=== PATIENT | male | born 1945 | race Caucasian/White ===

== ENCOUNTER 2022-05-22 07:53 | Outpatient (CLI) | payer MEDICARE, SELFPAY | END 2022-05-22 07:54 | disposition home or self-care (01) | PROVIDERS: PCP Family Medicine; Visit Provider Nurse Practitioner Family | DX: I87.312 Chronic venous hypertension (idiopathic) with ulcer of left lower extremity (principal); L97.829 Non-pressure chronic ulcer of other part of left lower leg with unspecified severity; I89.0 Lymphedema, not elsewhere classified; E66.9 Obesity, unspecified; Z68.30 Body mass index [BMI] 30.0-30.9, adult; Z72.0 Tobacco use | CPT/HCPCS: 99213 ==

== ENCOUNTER 2022-06-07 08:06 | Outpatient (CLI) | payer MEDICARE, SELFPAY | END 2022-06-07 08:07 | disposition home or self-care (01) | LOC: WOUND 08:07 | PROVIDERS: PCP Family Medicine; Visit Provider Nurse Practitioner Family | DX: I87.313 Chronic venous hypertension (idiopathic) with ulcer of bilateral lower extremity (principal); L97.822 Non-pressure chronic ulcer of other part of left lower leg with fat layer exposed; L97.812 Non-pressure chronic ulcer of other part of right lower leg with fat layer exposed; Q82.0 Hereditary lymphedema | CPT/HCPCS: 11042; 11045 ==

== ENCOUNTER 2022-06-13 07:51 | Outpatient (CLI) | payer MEDICARE, SELFPAY | END 2022-06-13 07:52 | disposition home or self-care (01) | LOC: WOUND 07:51 | PROVIDERS: PCP Family Medicine; Visit Provider Surgery | DX: I87.312 Chronic venous hypertension (idiopathic) with ulcer of left lower extremity (principal); L97.821 Non-pressure chronic ulcer of other part of left lower leg limited to breakdown of skin; I89.0 Lymphedema, not elsewhere classified | CPT/HCPCS: 97597 ==

== ENCOUNTER 2022-06-19 08:39 | Outpatient (CLI) | payer MEDICARE, SELFPAY | END 2022-06-19 08:40 | disposition home or self-care (01) | LOC: WOUND 08:40 | PROVIDERS: PCP Family Medicine; Visit Provider Nurse Practitioner Family | DX: I87.312 Chronic venous hypertension (idiopathic) with ulcer of left lower extremity (principal); L97.822 Non-pressure chronic ulcer of other part of left lower leg with fat layer exposed; I89.0 Lymphedema, not elsewhere classified | CPT/HCPCS: 11042 ==

== ENCOUNTER 2022-06-26 08:51 | Outpatient (CLI) | payer MEDICARE, SELFPAY | END 2022-06-26 08:52 | disposition home or self-care (01) | LOC: WOUND 09-05 10:37 | PROVIDERS: PCP Family Medicine; Visit Provider Nurse Practitioner Family | DX: I87.312 Chronic venous hypertension (idiopathic) with ulcer of left lower extremity (principal); L97.822 Non-pressure chronic ulcer of other part of left lower leg with fat layer exposed; I87.311 Chronic venous hypertension (idiopathic) with ulcer of right lower extremity; L97.819 Non-pressure chronic ulcer of other part of right lower leg with unspecified severity; Q82.0 Hereditary lymphedema; I83.022 Varicose veins of left lower extremity with ulcer of calf; L97.229 Non-pressure chronic ulcer of left calf with unspecified severity | CPT/HCPCS: 11042; 97597; 97598 ==

== ENCOUNTER 2022-07-04 07:53 | Outpatient (CLI) | payer MEDICARE, SELFPAY | END 2022-07-04 07:54 | disposition home or self-care (01) | LOC: WOUND 07:53 | PROVIDERS: PCP Family Medicine; Visit Provider Surgery | DX: I87.312 Chronic venous hypertension (idiopathic) with ulcer of left lower extremity (principal); L97.822 Non-pressure chronic ulcer of other part of left lower leg with fat layer exposed | CPT/HCPCS: 97597 ==

== ENCOUNTER 2022-07-05 08:41 | Outpatient (CLI) | payer MEDICARE, SELFPAY ==
--- NOTE | 2022-07-05 09:15 | CRLHL7_ITS ---
For Patients: As a result of the Century Cures Act, medical imaging exams and procedure reports are released immediately into your electronic medical record. You may view this report before your referring provider. If you have questions, please contact your health care provider. INDICATION: Localized edema COMPARISON: None. TECHNIQUE: A compression venous ultrasound exam was performed of the right lower extremity using bradford-scale imaging, color Doppler and spectral Doppler analysis. FINDINGS: Sonographic imaging of the right lower extremity demonstrates normal compressibility and color Doppler venous blood flow within the common femoral vein, deep femoral vein, and the proximal greater saphenous vein. Within the thigh, the femoral vein is patent and compressible. At a lower level, the popliteal and posterior tibial veins also show normal compressibility and color Doppler venous blood flow. Limited imaging of the contralateral groin demonstrates a normal spectral waveform and color Doppler venous blood flow within the left common femoral vein. IMPRESSION: Normal venous ultrasound exam. No evidence of deep vein thrombosis within the right lower extremity. Dictated by Marciano Dyer MD @ 07/05/2022 9:37:51 AM (Electronically Signed)
== END 2022-07-05 08:42 | disposition home or self-care (01) ==
PROVIDERS: PCP Family Medicine; Visit Provider Nurse Practitioner Family
DX: R60.0 Localized edema (principal)
CPT/HCPCS: 29581; 93971

== ENCOUNTER 2022-07-10 08:48 | Outpatient (CLI) | payer MEDICARE, SELFPAY | END 2022-07-10 08:49 | disposition home or self-care (01) | LOC: WOUND 08:48 | PROVIDERS: PCP Family Medicine; Visit Provider Nurse Practitioner Family | DX: I83.012 Varicose veins of right lower extremity with ulcer of calf (principal); I83.022 Varicose veins of left lower extremity with ulcer of calf; L97.218 Non-pressure chronic ulcer of right calf with other specified severity; L97.228 Non-pressure chronic ulcer of left calf with other specified severity; Q82.0 Hereditary lymphedema | CPT/HCPCS: 99214 ==

== ENCOUNTER 2022-07-10 09:40 | Outpatient (CLI) | payer MEDICARE, SELFPAY | END 2022-07-10 09:41 | disposition home or self-care (01) | LOC: LAB 10:06 | PROVIDERS: PCP Family Medicine; Visit Provider Nurse Practitioner Family | DX: I83.009 Varicose veins of unspecified lower extremity with ulcer of unspecified site (principal); I83.019 Varicose veins of right lower extremity with ulcer of unspecified site; L97.909 Non-pressure chronic ulcer of unspecified part of unspecified lower leg with unspecified severity; L97.919 Non-pressure chronic ulcer of unspecified part of right lower leg with unspecified severity | CPT/HCPCS: 87070; 87186 ==

== ENCOUNTER 2022-07-17 08:55 | Outpatient (CLI) | payer MEDICARE, SELFPAY | END 2022-07-17 08:56 | disposition home or self-care (01) | LOC: WOUND 08:56 | PROVIDERS: PCP Family Medicine; Visit Provider Nurse Practitioner Family | DX: I89.0 Lymphedema, not elsewhere classified (principal); I87.312 Chronic venous hypertension (idiopathic) with ulcer of left lower extremity; L97.828 Non-pressure chronic ulcer of other part of left lower leg with other specified severity | CPT/HCPCS: 99213 ==

== ENCOUNTER 2022-08-07 08:44 | Outpatient (CLI) | payer MEDICARE, SELFPAY ==
[2022-08-07 16:15] LABS: Albumin* 4.2 g/dL (3.3-5.0); Chloride* 99 mmol/L (96-114)
[2022-08-07 16:16] LABS: Potassium* 4.7 mmol/L (3.6-5.1)
[2022-08-07 16:18] LABS: Alkaline Phosphatase* 96 U/L (40-150); Aspartate Amino Transferase* 21 U/L (12-35); Bilirubin Total* 0.7 mg/dL (0.1-1.5); Blood Urea Nitrogen* 34 mg/dL (7-30); Carbon Dioxide* 32 mmol/L (20-32); Cholesterol* 207 mg/dL (90-199); Creatinine* 1.1 mg/dL (0.5-1.5); Estimated Glomerular Filt Rate 69 ml/min; Glucose* 115 mg/dL (60-115); Total Protein* 7.2 g/dL (6.0-8.3); Triglycerides* 105 mg/dL (40-149)
[2022-08-07 16:19] LABS: Alanine Aminotransferase* 18 U/L (4-50); Calcium* 9.2 mg/dL (8.4-10.6); HDL Cholesterol* 43 mg/dL (>=40); LDL Cholesterol Calculated 143 mg/dL (<100)
[2022-08-07 16:45] LABS: PSA Screen* 3.17 ng/mL (0.10-4.00)
[2022-08-07 16:59] LABS: Sodium* 138 mmol/L (135-149)
== END 2022-08-07 08:45 | disposition home or self-care (01) ==
PROVIDERS: PCP Family Medicine; Visit Provider Family Medicine
DX: Z00.00 Encounter for general adult medical examination without abnormal findings (principal); R60.0 Localized edema; E78.00 Pure hypercholesterolemia, unspecified; L30.9 Dermatitis, unspecified
CPT/HCPCS: 80053; 80061; 84153

== ENCOUNTER 2022-08-23 13:58 | Outpatient (CLI) | payer MEDICARE, SELFPAY ==
[2022-08-23 13:35] LABS: Chloride* 95 mmol/L (96-114); Potassium* 4.8 mmol/L (3.6-5.1); Sodium* 137 mmol/L (135-149)
[2022-08-23 13:38] LABS: Blood Urea Nitrogen* 39 mg/dL (7-30); Calcium* 9.8 mg/dL (8.4-10.6); Carbon Dioxide* 36 mmol/L (20-32); Creatinine* 1.2 mg/dL (0.5-1.5); Estimated Glomerular Filt Rate 62 ml/min; Glucose* 153 mg/dL (60-115)
== END 2022-08-23 13:59 | disposition home or self-care (01) ==
PROVIDERS: PCP Family Medicine; Visit Provider Family Medicine
DX: R60.0 Localized edema (principal)
CPT/HCPCS: 80048

== ENCOUNTER 2023-10-15 07:53 | Outpatient (CLI) | payer MEDICARE, SELFPAY | END 2023-10-15 07:54 | disposition home or self-care (01) | LOC: WOUND 07:54 | PROVIDERS: PCP Family Medicine; Visit Provider Nurse Practitioner Family | DX: I87.313 Chronic venous hypertension (idiopathic) with ulcer of bilateral lower extremity (principal); I87.2 Venous insufficiency (chronic) (peripheral); L97.818 Non-pressure chronic ulcer of other part of right lower leg with other specified severity; L97.828 Non-pressure chronic ulcer of other part of left lower leg with other specified severity; L97.328 Non-pressure chronic ulcer of left ankle with other specified severity | CPT/HCPCS: 97602; 99213 ==

== ENCOUNTER 2023-10-31 10:59 | Outpatient (CLI) | payer MEDICARE, SELFPAY | END 2023-10-31 11:00 | disposition home or self-care (01) | LOC: WOUND 10:59 | PROVIDERS: PCP Family Medicine; Visit Provider Nurse Practitioner Family | DX: I87.313 Chronic venous hypertension (idiopathic) with ulcer of bilateral lower extremity (principal); I87.2 Venous insufficiency (chronic) (peripheral); L97.828 Non-pressure chronic ulcer of other part of left lower leg with other specified severity; L97.818 Non-pressure chronic ulcer of other part of right lower leg with other specified severity | CPT/HCPCS: 97602; 99214 ==

== ENCOUNTER 2024-05-05 10:23 | Outpatient (CLI) | payer MEDICARE, SELFPAY ==
--- OUTSIDE RECORDS SUMMARY | 2024-05-05 10:29 | XMS_ITS | Clinical Summary ---
[facility] Organization [facility] Address [address] [place] [address] Care Team Providers Care Meter Record Clerk Name Role Phone Found, No Pcp MD Primary Care Provider Unavailab le Source Comments You are receiving this document as you are listed as the primary care provider,follow-up provider, or the patient has been referred to you for consultation.This is in compliance with the Medicare andMedicaid EHR Incentive Program,which states Providers who transition their patient to another setting of careor provider of care or refers their patient to another provider of care shouldprovide summary care record for each transition of care or referral. [facility] Allergies No known active allergies Medications Medication Sig Dispensed Refills Start Date End Date Status vitamin E ( VITAMIN E) 100 UNITS capsule Take 2 capsules by mouth daily (every 24 hours). Patient unsure of dosage. 09/16/2012 Active traMADol (ULTRAM) 50 MG tabletIndications:Todd k pain, unspecified back location, unspecified back pain laterality, unspecified chronicity Take 1 Tablet by mouth every 6 hours as needed for Pain. 20 Tablet 06/21/2019 Active Active Problems Problem Noted Date Diagnosed Date Febrile neutropenia 08/28/2012 Hyponatremia 08/28/2012 Hodgkin's disease 08/05/2012 Cancer Staging:Clinical:Stage III- Unsigned Pathologic: Unsigned Essential hypertension 08/27/2008 Overview: Hypertension Tobacco use disorder 08/27/2008 Overview: LW Modifier: 1/2-1 ppd LW Onset: 1972 ; Tobacco Abuse Immunizations Name Administration Dates Next Due Flu Vac Preserv Free (3+yrs) 09/02/2012 Influenza IIV3 (Trivalent) Edmar Medranose, 65+ Yrs (38293) 08/29/2017,08/24/2016 TDAP (ADACEL) 03/11/2008 Family History Medical History Relation Name Comments Diabetes Father Heart Disease Mother Relation Name Status Comments Father Mother Brother 1 Alive Brother 2 Alive Sister Alive Social History Tobacco Use Types Packs/Day Years Used Date Smoking Tobacco: Some Days Cigarettes 0.5 45 Smokeless Tobacco: Never Comments:Smoked 1 ppd x 45 y ears - quit 2 weeks ago Alcohol Use Standard Drinks/Week Comments No 0 (1 standard drink = 0.6 oz pure alcohol) patient reports 1-2 drinks a day. Sex and Gender Information Value Date Recorded Sex Assigned at Not on file Gender Identity Not on file Sexual Orientation Not on file Last Filed Vital Signs Vital Sign Reading Time Taken Comments Blood Pressure 148/94 06/21/2019 1:04 PM CDT Pulse 90 06/21/2019 1:04 PM CDT Temperature 36.8 ??C (98.2 ??F) 06/21/2019 12:59 PM C DT Respiratory Rate 17 06/21/2019 12:59 PM CDT Oxygen Saturation 96% 06/21/2019 12:59 PM CDT Inhaled Oxygen Concentration - - Weight 122.9 kg (271 lb) 06/21/2019 12:59 PM CDT Height 181.6 cm (5' 11.5) 07/08/2013 12:15 PM C DT Body Mass Index 37.27 07/08/2013 12:15 PM CDT Plan of Treatment Health Maintenance Due Date Last Done Comments Hep C Screening (Preventive Services) 1945 Zoster/Shingles (1 of 2) 1995 Pneumococcal 65+ Yrs (2 - PPSV23 or PCV20) 06/21/2017 06/21/2016 DTaP/Tdap/Td (2 - Tdap) 03/11/2018 03/11/2008 COVID-19 Vaccine (3 - season) 2023 02/18/2021, 01/21/2021 Medicare Annual Wellness Visit 11/25/2023 Influenza (Season Ended) 2024 017, 08/24/2016, 09/06/2015, Additional history exists Cholesterol Discontinued 07/15/2013, 08/14/2012 HepA Aged Out No longer eligi ble based on patient's age to complete this topic HepB Aged Out No longer eligi ble based on patient's age to complete this topic Hib Aged Out No longer eligi ble based on patient's age to complete this topic IPV (Polio) Aged Out No longer eligi ble based on patient's age to complete this topic MCV4 Aged Out No longer eligi ble based on patient's age to complete this topic Procedures Procedure Name Priority Date/Time Associated Diagnosis Comments LIPID PANEL & DIRECT LDL (IF NEEDED) Routine 07/15/2013 9:32 AM CDT Screening cholesterol level from Last 3 Months or Most Recently Relevant to Health Maintenance Results * (ABNORMAL) Lipid Panel and Direct LDL(If Needed) (07/15/2013 9:32 AM CDT) Cholesterol 203(H) 0 - 200 mg/dL HP CONVERSION Triglycerides 71 0 - 149 mg/dL HP CONVERSION HDL Cholesterol 46 >39 mg/dL HP CONVERSION Cholesterol/HDL Ratio Screen 4.4 HP CONVERSION LDL Calculated 143(H) 19 - 130 mg/dL HP CONVERSION Hours Fasting 14.0 HP CONVERSION 07/15/2013 9:32 AM CDT 07/15/2013 9:32 AM CDT Narrative HP CONVERSION - 07/15/2013 11:12 AM CDT Performed at [facility], [address] [place] [address] Calos Fu MD LAB_1 HP CONVERSION from Last 3 Months or Most Recently Relevant to Health Maintenance Care Teams Meter Record Clerk Relationship Specialty Start Date End Date Found, No Pcp, [address] [place] [address] PCP - General 02/09/22
--- OUTSIDE RECORDS SUMMARY | 2024-05-05 10:29 | XMS_ITS | Referral Summary ---
Author Organization [employer] [facility] Address [address] [place] [address] Care Team Providers Care Post Tensioning Ironworker Name Role Phone Calos Fu MD Primary Care Provider +1 -[phone] Social History Tobacco Use Types Packs/Day Years Used Date Smoking Tobacco: Never Assessed Depression (PHQ-9) Answer Date Recorded Last PHQ-9 Score Not on file 12/19/2020 Thoughts of self harm Not on file 12/19/2020 Sex and Gender Information Value Date Recorded Sex Assigned at Not on file Gender Identity Not on file Sexual Orientation Not on file Plan of Treatment Not on file Care Teams Post Tensioning Ironworker Relationship Specialty Start Date End Date Calos Fu MD [address] [place] [address] PCP - General Oncology 12/19/20 Additional Source Comments PLEASE NOTE: Replies to this message will not be received.[employer] and [facility]
--- OUTSIDE RECORDS SUMMARY | 2024-05-05 10:29 | XMS_ITS | Clinical Summary ---
Author Organization [employer] Address [address] [place] [address] Care Team Providers Care Lumber Straightened Name Role Phone Calos Fu MD Primary Care Provider +1 -[phone] Social History Tobacco Use Types Packs/Day Years Used Date Smoking Tobacco: Never Assessed Depression (PHQ-9) Answer Date Recorded Last PHQ-9 Score Not on file 12/19/2020 Thoughts of self harm Not on file 12/19/2020 Sex and Gender Information Value Date Recorded Sex Assigned at Not on file Gender Identity Not on file Sexual Orientation Not on file Plan of Treatment Health Maintenance Due Date Last Done Comments Hepatitis C Testing 1945 PHQ-9 Depression Screening 1957 Lipids Standard 02/11/1980 Varicella Zoster Sequential (1 of 2) 1995 Respiratory Syncytial Virus (RSV) Vaccine (1 - 1-dose 60+ series) 2005 Pneumococcal Vaccine (65+ Years) (2 of 2 - PPSV23 or PCV20) 06/21/2017 06/21/2016 DTaP/Tdap/Td Vaccines (2 - Td or Tdap) 03/11/2018 03/11/2008 COVID-19 Vaccine (1 - season) 2023 Influenza Vaccine (Season Ended) 2024 08/29/2017, 08/24/2016, 09/02/2012, Additional history exists HIB Vaccines Aged Out No longer eligi ble based on patient's age to complete this topic HPV Vaccines Aged Out No longer eligi ble based on patient's age to complete this topic Hepatitis A Vaccines Aged Out No long er eligible based on patient's age to complete this topic Hepatitis B Vaccines Aged Out No long er eligible based on patient's age to complete this topic Meningococcal Vaccines Aged Out No lo nger eligible based on patient's age to complete this topic Care Teams Lumber Straightened Relationship Specialty Start Date End Date Calos Fu MD [address] [place] [address] PCP - General Oncology 12/19/20 Additional Source Comments PLEASE NOTE: Replies to this message will not be received.[facility] and [facility]
== END 2024-05-05 10:24 | disposition home or self-care (01) ==
LOC: WOUND 10:23
PROVIDERS: PCP Family Medicine; Visit Provider Nurse Practitioner Family
DX: I87.333 Chronic venous hypertension (idiopathic) with ulcer and inflammation of bilateral lower extremity (principal); I87.2 Venous insufficiency (chronic) (peripheral); L97.222 Non-pressure chronic ulcer of left calf with fat layer exposed; L97.812 Non-pressure chronic ulcer of other part of right lower leg with fat layer exposed; I89.0 Lymphedema, not elsewhere classified
CPT/HCPCS: 97602; G0463

== ENCOUNTER 2024-05-12 11:26 | Outpatient (CLI) | payer MEDICARE, SELFPAY ==
--- OUTSIDE RECORDS SUMMARY | 2024-05-12 11:28 | XMS_ITS | Referral Summary ---
Author Organization [employer] [facility] Address [address] [place] [address] Care Team Providers Care Model Maker Scale Name Role Phone Calos Fu MD Primary Care Provider +1 -[phone] Social History Tobacco Use Types Packs/Day Years [...] of Treatment Not on file Care Teams Model Maker Scale Relationship Specialty Start Date End Date Calos Fu MD [address] [place] [address] PCP - General Oncology 12/19/20 Additional Source Comments PLEASE NOTE: Replies to this message will not be received.[employer] [facility] and [facility]
--- OUTSIDE RECORDS SUMMARY | 2024-05-12 11:28 | XMS_ITS | Clinical Summary ---
Author Organization [employer] Address [address] [place] [address] Care Team Providers Care Calciminer Name Role Phone Calos Fu MD Primary Care Provider +1 -[phone] Social History Tobacco Use Types Packs/Day Years [...] age to complete this topic Care Teams Calciminer Relationship Specialty Start Date End Date Calos Fu MD [address] [place] [address] PCP - General Oncology 12/19/20 Additional Source Comments PLEASE NOTE: Replies to this message will not be received.[facility] and [facility]
--- OUTSIDE RECORDS SUMMARY | 2024-05-12 11:28 | XMS_ITS | Clinical Summary ---
Author Organization [facility] Address [address] [place] [address] Care Team Providers Care Folder Inspector Name Role Phone Found, No Pcp MD [...] for each transition of care or referral. [facility] Allergies No known active allergies Medications [...] Influenza IIV3 (Trivalent) Edmar Medranose, 65+ Yrs (45160) 08/29/2017,08/24/2016 TDAP (ADACEL) 03/11/2008 Family History Medical [...] - 07/15/2013 11:12 AM CDT Performed at [facility], [address] [place] [address] Calos Fu MD LAB_1 HP CONVERSION from Last 3 Months or Most Recently Relevant to Health Maintenance Care Teams Folder Inspector Relationship Specialty Start Date End Date Found, No Pcp, [address] [place] [address] PCP - General 02/09/22
== END 2024-05-12 11:27 | disposition home or self-care (01) ==
LOC: WOUND 11:26
PROVIDERS: PCP Family Medicine; Visit Provider Nurse Practitioner Family
DX: I87.333 Chronic venous hypertension (idiopathic) with ulcer and inflammation of bilateral lower extremity (principal); I87.2 Venous insufficiency (chronic) (peripheral); L97.812 Non-pressure chronic ulcer of other part of right lower leg with fat layer exposed; L97.322 Non-pressure chronic ulcer of left ankle with fat layer exposed; I89.0 Lymphedema, not elsewhere classified
CPT/HCPCS: 97597; 97598; 97602; G0463

== ENCOUNTER 2024-05-25 15:27 | Outpatient (CLI) | payer MEDICARE, SELFPAY ==
--- OUTSIDE RECORDS SUMMARY | 2024-05-25 15:29 | XMS_ITS | Clinical Summary ---
Author Organization [employer] Address [address] [place] [address] Care Team Providers Care Wood Heel Finisher Name Role Phone Calos Fu MD Primary Care Provider +1 -[phone] Social History Tobacco Use Types Packs/Day Years [...] age to complete this topic Care Teams Wood Heel Finisher Relationship Specialty Start Date End Date Calos Fu MD [address] [place] [address] PCP - General Oncology 12/19/20 Additional Source Comments PLEASE NOTE: Replies to this message will not be received.[facility] and [facility]
--- OUTSIDE RECORDS SUMMARY | 2024-05-25 15:29 | XMS_ITS | Clinical Summary ---
Author Organization [facility] Address [address] [place] [address] Care Team Providers Care Roofing Machine Tender Name Role Phone Found, No Pcp MD [...] transition of care or referral. [facility] Allergies No known active allergies Medications [...] Influenza IIV3 (Trivalent) Edmar Medranose, 65+ Yrs (71526) 08/29/2017,08/24/2016 TDAP (ADACEL) 03/11/2008 Family History Medical [...] - 07/15/2013 11:12 AM CDT Performed at [facility], [address] [place] [address] Calos Fu MD LAB_1 HP CONVERSION from Last 3 Months or Most Recently Relevant to Health Maintenance Care Teams Roofing Machine Tender Relationship Specialty Start Date End Date Found, No Pcp, [address] [place] [address] PCP - General 02/09/22
--- OUTSIDE RECORDS SUMMARY | 2024-05-25 15:29 | XMS_ITS | Referral Summary ---
Author Organization [employer] [facility] Address [address] [place] [address] Care Team Providers Care Brake Operator Helper Name Role Phone Calos Fu MD Primary Care Provider +1 [phone] Social History Tobacco Use Types Packs/Day Years [...] of Treatment Not on file Care Teams Brake Operator Helper Relationship Specialty Start Date End Date Calos Fu MD [address] [place] [address] PCP - General Oncology 12/19/20 Additional Source Comments PLEASE NOTE: Replies to this message will not be received.[employer] and [facility]
== END 2024-05-25 15:28 | disposition home or self-care (01) ==
LOC: WOUND 15:27
PROVIDERS: PCP Family Medicine; Visit Provider Nurse Practitioner Family
DX: I87.2 Venous insufficiency (chronic) (peripheral); L97.812 Non-pressure chronic ulcer of other part of right lower leg with fat layer exposed; I89.0 Lymphedema, not elsewhere classified; I87.333 Chronic venous hypertension (idiopathic) with ulcer and inflammation of bilateral lower extremity; L97.222 Non-pressure chronic ulcer of left calf with fat layer exposed
CPT/HCPCS: 97602; G0463

== ENCOUNTER 2024-07-06 15:25 | Outpatient (CLI) | payer MEDICARE, SELFPAY ==
--- OUTSIDE RECORDS SUMMARY | 2024-07-06 15:26 | XMS_ITS | Clinical Summary ---
Author Organization [facility] Address [address] [place] [address] Care Team Providers Care Survey Coordinator Name Role Phone Found, No Pcp MD [...] for each transition of care or referral. [facility] Allergies No known active allergies Medications Medication [...] Influenza IIV3 (Trivalent) Edmar Medranose, 65+ Yrs (25022) 08/29/2017,08/24/2016 TDAP (ADACEL) 03/11/2008 Family History Medical [...] 01/21/2021 Medicare Annual Wellness Visit 11/25/2023 Influenza (#1) 2024 08/29/2017, 07/28, 09/06/2015, Additional history exists Cholesterol Discontinued 07/15/2013, [...] - 07/15/2013 11:12 AM CDT Performed at [facility] [address] [place] [address] Calos Fu MD LAB_1 HP CONVERSION from Last 3 Months or Most Recently Relevant to Health Maintenance Care Teams Survey Coordinator Relationship Specialty Start Date End Date Found, No Pcp, [address] [place] [address] PCP - General 02/09/22
--- OUTSIDE RECORDS SUMMARY | 2024-07-06 15:26 | XMS_ITS | Clinical Summary ---
Author Organization [employer] Address [address] [place] [address] Care Team Providers Care Players Assistant Name Role Phone Calos Fu MD Primary Care Provider +1 -[phone] Social History Tobacco Use Types Packs/Day Years [...] Last Done Comments Hepatitis C Testing 1945 Depression Screening 1957 Lipids Standard 02/11/1980 Varicella Zoster Sequential (1 of 2) 1995 Respiratory Syncytial Virus (RSV) Vaccine (1 - 1-dose 60+ series) 2005 Pneumococcal Vaccine (65+ Years) (2 of 2 - PPSV23 or PCV20) 06/21/2017 06/21/2016 DTaP/Tdap/Td Vaccines (2 - Td or Tdap) 03/11/2018 03/11/2008 COVID-19 Vaccine (1 - 2022-24 season) 2023 Influenza Vaccine (#1) 2024 7, 08/24/2016, 09/02/2012, Additional history exists HIB Vaccines [...] age to complete this topic Care Teams Players Assistant Relationship Specialty Start Date End Date Calos Fu MD [address] [place] [address] PCP - General Oncology 12/19/20 Additional Source Comments PLEASE NOTE: Replies to this message will not be received.[facility] and [facility]
--- OUTSIDE RECORDS SUMMARY | 2024-07-06 15:26 | XMS_ITS | Referral Summary ---
Author Organization [employer] [facility] Address [address] [place] [address] Care Team Providers Care Setter Helper Name Role Phone Calos Fu MD Primary Care Provider +1 -[phone] Social History Tobacco Use Types Packs/Day Years [...] of Treatment Not on file Care Teams Setter Helper Relationship Specialty Start Date End Date Calos Fu MD [address] [place] [address] PCP - General Oncology 12/19/20 Additional Source Comments PLEASE NOTE: Replies to this message will not be received.[employer] and [facility]
== END 2024-07-06 15:26 | disposition home or self-care (01) ==
LOC: WOUND 15:25
PROVIDERS: PCP Family Medicine; Visit Provider Nurse Practitioner Family
DX: I89.0 Lymphedema, not elsewhere classified (principal)
CPT/HCPCS: G0463

== ENCOUNTER 2024-07-31 14:21 | Outpatient (CLI) | payer MEDICARE, SELFPAY ==
--- OUTSIDE RECORDS SUMMARY | 2024-07-31 14:23 | XMS_ITS | Referral Summary ---
Author Organization [facility] Address [address] [place] [address] Care Team Providers Care Dental Technologist Name Role Phone Calos Fu MD Primary Care Provider +1 -[phone] Social History Tobacco Use Types Packs/Day Years [...] of Treatment Not on file Care Teams Dental Technologist Relationship Specialty Start Date End Date Calos Fu MD [address] [place] [address] PCP - General Oncology 12/19/20 Additional Source Comments PLEASE NOTE: Replies to this message will not be received.[employer] and [facility]
--- OUTSIDE RECORDS SUMMARY | 2024-07-31 14:23 | XMS_ITS | Clinical Summary ---
Author Organization [facility] Address [address] [place] [address] Care Team Providers Care Saturation Diver Name Role Phone Found, No Pcp MD [...] for each transition of care or referral. [facility] Allergies No known active allergies Medications Medication [...] III- Unsigned Pathologic: Unsigned Essential hypertension 08/27/2008 Overview (07/17/2017): Hypertension Tobacco use disorder 08/27/2008 Overview (07/17/2017): LW Modifier: 12-1 ppd LW Onset: 1972 ; Tobacco Abuse Immunizations Name Administration Dates Next Due Flu Vac Preserv Free (3+yrs) 09/02/2012 Influenza IIV3 (Trivalent) F erik Highdose, 65+ Yrs (56256) 08/29/2017,08/24/2016 TDAP (ADACEL) 03/11/2008 Family History Medical [...] Comments Hep C Screening (Preventive Services) 1945 MTM Covered 1945 Zoster/Shingles (1 of 2) 1995 Pneumococcal [...] CDT Performed at [facility], [address] [place] [address] Calos Fu MD LAB_1 HP CONVERSION from Last 3 Months or Most Recently Relevant to Health Maintenance Care Teams Saturation Diver Relationship Specialty Start Date End Date Found, No Pcp, [address] [place] [address] PCP - General 02/09/22
--- OUTSIDE RECORDS SUMMARY | 2024-07-31 14:23 | XMS_ITS | Clinical Summary ---
Author Organization [employer] Address [address] [place] [address] Care Team Providers Care Marketing Operations Intern Name Role Phone Calos Fu MD Primary Care Provider +1 -[phone] Social History Tobacco Use Types Packs/Day Years [...] age to complete this topic Care Teams Marketing Operations Intern Relationship Specialty Start Date End Date Calos Fu MD [address] [place] [address] PCP - General Oncology 12/19/20 Additional Source Comments PLEASE NOTE: Replies to this message will not be received.[facility] and [facility]
== END 2024-07-31 14:22 | disposition home or self-care (01) ==
LOC: WOUND 14:21
PROVIDERS: PCP Family Medicine; Visit Provider Nurse Practitioner Family
DX: I87.333 Chronic venous hypertension (idiopathic) with ulcer and inflammation of bilateral lower extremity (principal); I89.0 Lymphedema, not elsewhere classified; L97.811 Non-pressure chronic ulcer of other part of right lower leg limited to breakdown of skin; L97.821 Non-pressure chronic ulcer of other part of left lower leg limited to breakdown of skin
CPT/HCPCS: G0463

== ENCOUNTER 2024-08-04 09:22 | Outpatient (CLI) | payer MEDICARE, SELFPAY ==
--- OUTSIDE RECORDS SUMMARY | 2024-08-04 09:26 | XMS_ITS | Clinical Summary ---
Author Organization [employer] Address [address] [place] [address] Care Team Providers Care Director Of Career Resources Name Role Phone Calos Fu MD Primary Care Provider +1 -[phone] Social History Tobacco Use Types Packs/Day Years [...] 03/11/2018 03/11/2008 COVID-19 Vaccine (1 - season) 2024 Influenza Vaccine (#1) 2024 7, 08/24/2016, 09/02/2012, [...] age to complete this topic Care Teams Director Of Career Resources Relationship Specialty Start Date End Date Calos Fu MD [address] [place] [address] PCP - General Oncology 12/19/20 Additional Source Comments PLEASE NOTE: Replies to this message will not be received.[facility] and [facility]
--- OUTSIDE RECORDS SUMMARY | 2024-08-04 09:26 | XMS_ITS | Clinical Summary ---
Author Organization [facility] Address [address] [place] [address] Care Team Providers Care Protective Service Specialist Name Role Phone Found, No Pcp MD [...] for each transition of care or referral. [facility] Allergies No known active allergies Medications Medication [...] IIV3 (Trivalent) F erik Highdose, 65+ Yrs (41035) 08/29/2017,08/24/2016 TDAP (ADACEL) 03/11/2008 Family History Medical [...] 06/21/2016 DTaP/Tdap/Td (2 - Tdap) 03/11/2018 03/11/2008 Medicare Annual Wellness Visit 11/25/2023 COVID-19 Vaccine (3 - season) 2024 02/18/2021, 01/21/2021 Influenza (#1) 2024 08/29/2017, 07/28, 09/06/2015, Additional [...] - 07/15/2013 11:12 AM CDT Performed at [facility], [address] [place] [address] Calos Fu MD LAB_1 HP CONVERSION from Last 3 Months or Most Recently Relevant to Health Maintenance Care Teams Protective Service Specialist Relationship Specialty Start Date End Date Found, No Pcp, [address] [place] [address] PCP - General 02/09/22
--- OUTSIDE RECORDS SUMMARY | 2024-08-04 09:26 | XMS_ITS | Referral Summary ---
Author Organization [facility] Address [address] [place] [address] Care Team Providers Care Clerk Carrier Name Role Phone Calos Fu MD Primary Care Provider +1 -[phone] Social History Tobacco Use Types Packs/Day Years [...] of Treatment Not on file Care Teams Clerk Carrier Relationship Specialty Start Date End Date Calos Fu MD [address] [place] [address] PCP - General Oncology 12/19/20 Additional Source Comments PLEASE NOTE: Replies to this message will not be received.[employer] [facility]
== END 2024-08-04 09:23 | disposition home or self-care (01) ==
LOC: WOUND 09:22
PROVIDERS: PCP Family Medicine; Visit Provider Nurse Practitioner Family
DX: I87.333 Chronic venous hypertension (idiopathic) with ulcer and inflammation of bilateral lower extremity (principal); I89.0 Lymphedema, not elsewhere classified; L97.818 Non-pressure chronic ulcer of other part of right lower leg with other specified severity; L97.828 Non-pressure chronic ulcer of other part of left lower leg with other specified severity; B96.5 Pseudomonas (aeruginosa) (mallei) (pseudomallei) as the cause of diseases classified elsewhere
CPT/HCPCS: 87070; 87186; 97597; 97598; G0463

== ENCOUNTER 2024-08-13 09:20 | Outpatient (CLI) | payer MEDICARE, SELFPAY ==
--- OUTSIDE RECORDS SUMMARY | 2024-08-13 09:22 | XMS_ITS | Referral Summary ---
Author Organization [employer] [facility] Address [address] [place] [address] Care Team Providers Care Varnish Melter Name Role Phone Calos Fu MD Primary Care Provider +1 -[phone] Social History Tobacco Use Types Packs/Day Years [...] of Treatment Not on file Care Teams Varnish Melter Relationship Specialty Start Date End Date Calos Fu MD [address] [place] [address] PCP - General Oncology 12/19/20 Additional Source Comments PLEASE NOTE: Replies to this message will not be received.[employer] and [facility]
--- OUTSIDE RECORDS SUMMARY | 2024-08-13 09:22 | XMS_ITS | Clinical Summary ---
Author Organization [employer] Address [address] [place] [address] Care Team Providers Care Delicatessen Store Manager Name Role Phone Calos Fu MD Primary Care Provider +1 -[phone] Social History Tobacco Use Types Packs/Day Years [...] age to complete this topic Care Teams Delicatessen Store Manager Relationship Specialty Start Date End Date Calos Fu MD [address] [place] [address] PCP - General Oncology 12/19/20 Additional Source Comments PLEASE NOTE: Replies to this message will not be received.[facility] and [facility]
--- OUTSIDE RECORDS SUMMARY | 2024-08-13 09:22 | XMS_ITS | Clinical Summary ---
Author Organization [facility] Address [address] [place] [address] Care Team Providers Care Cellophane Tester Name Role Phone Found, No Pcp MD [...] for each transition of care or referral. [facility] Allergies No known active allergies Medications [...] IIV3 (Trivalent) F erik Highdose, 65+ Yrs (16053) 08/29/2017,08/24/2016 TDAP (ADACEL) 03/11/2008 Family History Medical [...] 06/21/2016 DTaP/Tdap/Td (2 - Tdap) 03/11/2018 03/11/2008 RSV (1 - 1-dose 75+ series) 02/11/2020 Medicare Annual Wellness Visit 11/25/2023 COVID-19 Vaccine (3 - 2023- season) 2024 02/18/2021, 01/21/2021 Influenza (#1) 2024 [...] - 07/15/2013 11:12 AM CDT Performed at [facility], [address] [place] [address] Calos Fu MD LAB_1 HP CONVERSION from Last 3 Months or Most Recently Relevant to Health Maintenance Care Teams Cellophane Tester Relationship Specialty Start Date End Date Found, No Pcp, [address] [place] [address] PCP - General 02/09/22
== END 2024-08-13 09:21 | disposition home or self-care (01) ==
LOC: WOUND 09:20
PROVIDERS: PCP Family Medicine; Visit Provider Nurse Practitioner Family
DX: I87.323 Chronic venous hypertension (idiopathic) with inflammation of bilateral lower extremity (principal); I89.0 Lymphedema, not elsewhere classified
CPT/HCPCS: G0463